=== PATIENT | female | born 1965 | race Caucasian/White ===

== ENCOUNTER 2017-02-09 12:53 | Emergency (ER) | payer OTHER ==
[2017-02-09 12:56] VITALS: BP 112/64
[2017-02-09] MEDS ORDERED: Sodium Chloride 0.9% 1,000 ML IV ONE (13:21)
[2017-02-09] MEDS ORDERED: Sodium Chloride 0.9% 10 ML Syringe FLUSH PRN (13:21)
[2017-02-09] MEDS ORDERED: Ondansetron 4 MG/2 ML SDV IVPUSH ONE (13:21)
--- NOTE | 2017-02-09 13:30 | EDM.PDOC ---
ED HPI GENERAL MEDICAL PROBLEM - General Chief Complaint: General Stated Complaint: bilateral hypogastric area pain and fever Time Seen by Provider: 02/09/17 13:09 Source of Information: Reports: Patient History Limitations: Reports: No limitations - History of Present Illness INITIAL COMMENTS - FREE TEXT/NARRATIVE: Patient comes to ER complaining of feeling feverish since Friday of last week (four days ago). Was seen at clinic on Friday and given Septra for suspected UTI. Had small amount of WBC and leukocyte esterase per her labs (she has copy of results). Complains that frequency and burning have not improved. Now has intermittent crampy pain in suprapubic area as well as bilateral low back. Some nausea. No emesis. No bowel changes. Denies HEENT/Resp/CV complaints during ROS. [place] tinged urine at times noted on toilet paper after voiding. No significant history of UTIs in past. Past medical history includes depression/anxiety/thyroid issues. 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 Lower Back Pain Score (Numeric/FACES): 7 hypogastic Pain Score (Numeric/FACES): 7 - Related Data Allergies Allergy/AdvReac Type Severity Reaction Status Date / Time Penicillins Allergy Hives Verified 02/09/17 12:55 Home Meds: Home Meds Cholecalciferol (Vitamin D3) [Vitamin D3] 2,000 unit PO DAILY 02/09/17 [History] Citalopram [Celexa] 20 mg PO DAILY 02/09/17 [History] ClonazePAM [KlonoPIN] 0.5 mg PO BID 02/09/17 [History] Levothyroxine 75 mcg PO ACBREAKFAST 02/09/17 [History] Sulfamethoxazole/Trimethoprim [Bactrim Ds Tablet] 1 each PO BID 02/09/17 [ History] traZODone 50 mg PO ONETIME 02/09/17 [History] Past Medical History Psychiatric History: Reports: Anxiety, Depression Endocrine/Metabolic History: Reports: Hypothyroidism Social & Family History - Tobacco Use Smoking Status *Q: Former Smoker Years of Tobacco use: 10 Packs/Tins Daily: 0.2 Used Tobacco, but Quit: Yes Month Tobacco Last Used: 1 - Caffeine Use Caffeine Use: Reports: Coffee, Soda - Recreational Drug Use Recreational Drug Use: No ED ROS GENERAL - Review of Systems Review Of Systems: See Below Constitutional: Reports: fever, chills, malaise, fatigue, decreased appetite. Denies: weakness, night sweats, diaphoresis HEENT: Reports: No symptoms Respiratory: Reports: no symptoms Cardiovascular: Reports: No symptoms GI/Abdominal: Reports: Abdominal pain, Decreased appetite, Nausea. Denies: Black stool, Bloody stool, Constipation, Diarrhea, Distension, Hematochezia, Vomiting : Reports: dysuria, frequency, hematuria. Denies: flank pain Musculoskeletal: Reports: back pain Skin: Reports: no symptoms Neurological: Reports: no symptoms Psychiatric: Reports: No symptoms Hematologic/Lymphatic: Reports: no symptoms ED EXAM, GENERAL - Physical Exam Exam: See Below Exam Limited By: No limitations General Appearance: alert, WD/WN, no apparent distress Eye Exam: bilateral eye: EOMI, normal inspection, PERRL Ears: normal external exam Nose: normal inspection Throat/Mouth: Normal inspection, Normal voice, No airway compromise Head: atraumatic, normocephalic Neck: normal inspection, supple, non-tender, full range of motion. No: lymphadenopathy (L), lymphadenopathy (R) Respiratory/Chest: no respiratory distress, lungs clear, normal breath sounds, no accessory muscle use Cardiovascular: regular rate, rhythm, no edema, no murmur Peripheral Pulses: 2+: radial (L), radial (R) GI/Abdominal: normal bowel sounds, soft, no distention, tender (mild tenderness lower abdomen, more pronounced suprapubic area. ). No: guarding, rigid, rebound Back Exam: No: CVA tenderness (L), CVA tenderness (R) Extremities: slow capillary refill (centrally and peripherally.) Neurological: alert, oriented, normal cognition, normal gait, no motor/sensory deficits Psychiatric: normal affect, normal mood Skin Exam: Warm, Dry, Intact, Normal color Course - Vital Signs Last Recorded V/S: Last Vital Signs Temp 36.4 C 02/09/17 12:55 Pulse 80 02/09/17 12:55 Resp 18 02/09/17 12:55 BP 112/64 02/09/17 12:55 Pulse Ox 97 02/09/17 12:55 - Orders/Labs/Meds Orders: Active Orders 24 hr Category Date Time Status Abdomen Pelvis wo Cont [CT] Stat Exams 02/09/17 14:03 Taken Sodium Chloride 0.9% [Saline Flush] Med 02/09/17 13:21 Active 10 ml FLUSH ASDIRECTED PRN cefTRIAXone [Rocephin] 1 gm Med 02/09/17 15:59 Active Sodium Chloride 0.9% [Normal Saline] 100 ml IV ONETIME Saline Lock Insert [OM.PC] Stat Oth 02/09/17 13:21 Ordered Medication Orders Ceftriaxone Sodium 1 gm/ (Sodium Chloride) 100 mls @ 200 mls/hr IV ONETIME ONE Stop: 02/09/17 16:28 Sodium Chloride (Saline Flush) 10 ml FLUSH ASDIRECTED PRN PRN Reason: Keep Vein Open Labs: Laboratory Tests 02/09/17 02/09/17 02/09/17 Range/Units 13:10 13:15 13:25 WBC 4.5 (4.0-10.2) K/uL RBC 4.28 (3.77-5.09) M/uL Hgb 13.8 (11.7-15.5) g/dL Hct 39.6 (34.0-46.0) % MCV 92.5 (84.0-98.0) fL MCH 32.2 (28.2-33.3) pg MCHC 34.8 (31.7-36.0) g/dL RDW 12.6 (11.2-14.1) % Plt Count 201 (150-350) K/uL Neut % (Auto) 76.3 (45.0-80.0) % Lymph % (Auto) 13.9 (10.0-50.0) % [place] % (Auto) 9.4 (2.0-14.0) % Eos % (Auto) 0.2 (0.0-5.0) % Baso % (Auto) 0.2 (0.0-2.0) % Neut # 3.39 (1.40-7.00) K/uL Lymph # 0.62 (0.50-3.50) K/uL [place] # 0.42 (0.00-1.00) K/uL Eos # 0.01 (0.00-0.50) K/uL Baso # 0.01 (0.00-0.20) K/uL Sodium 137 (136-145) mmol/L Potassium 3.5 (3.5-5.1) mmol/L Chloride 103 (98-107) mmol/L Carbon Dioxide 23.4 (21.0-32.0) mmol/L BUN 7 (7-18) mg/dL Creatinine 0.76 (0.51-1.17) mg/dL Est Cr Clr Drug Dosing 73.26 mL/min Estimated GFR (MDRD) > 60 mL/min Glucose 98 (74-106) mg/dL Calcium 8.4 L (8.5-10.1) mg/dL Total Bilirubin 0.3 (0.2-1.0) mg/dL AST 13 L (15-37) U/L ALT 17 (12-78) U/L Alkaline Phosphatase 52 (46-116) IU/L Total Protein 7.1 (6.4-8.2) g/dL Albumin 4.0 (3.4-5.0) g/dL Specimen Type Urinblad Urine Color Yellow Urine Appearance Clear Urine pH 6.0 (5.0-9.0) Ur Specific [place] <= 1.005 (1.005-1.030) Urine Protein Negative (NEGATIVE) mg/dL Urine Glucose (UA) Negative (NEGATIVE) mg/dL Urine Ketones Negative (NEGATIVE) mg/dL Urine Occult Blood Trace-intact H (NEGATIVE) Urine Nitrite Negative (NEGATIVE) Urine Bilirubin Negative (NEGATIVE) Urine Urobilinogen 0.2 (0.2-1.0) E.U./dL Ur Leukocyte Esterase Negative (NEGATIVE) Urine RBC 5-10 H /HPF Urine WBC 0-5 /HPF Ur Epithelial Cells Few /LPF Urine Bacteria Rare (NONE TO FEW) /HPF Meds: Medications Generic Name Dose Route Start Last Admin Trade Name Freq PRN Reason Stop Dose Admin Ceftriaxone Sodium 1 gm/ 100 mls @ 200 mls/hr 02/09/17 15:59 Sodium Chloride IV 02/09/17 16:28 ONETIME ONE Sodium Chloride 10 ml 02/09/17 13:21 Saline Flush FLUSH ASDIRECTED PRN Keep Vein Open Discontinued Medications Generic Name Dose Route Start Last Admin Trade Name Freq PRN Reason Stop Dose Admin Sodium Chloride 1,000 mls @ 999 mls/hr 02/09/17 13:21 02/09/17 13:34 Normal Saline IV 02/09/17 14:21 999 mls/hr .BOLUS ONE Administration Ketorolac Tromethamine 30 mg 02/09/17 14:03 02/09/17 14:12 Toradol IVPUSH 02/09/17 14:04 30 mg ONETIME ONE Administration Ondansetron HCl 4 mg 02/09/17 13:21 02/09/17 13:34 Zofran IVPUSH 02/09/17 13:22 4 mg ONETIME ONE Administration - Radiology Interpretation Free Text/Narrative:: CT of abdomen read as overall normal. Some fluid noted in pelvis. Could also be normal per radiologist. - Re-Assessments/Exams Free Text/Narrative Re-Assessment/Exam: 02/09/17 16:02 Patient given fluids, Toradol, Zofran. CBC/Chem/UA overall unremarkable. No sign of UTI. Patient did have small amount of blood in UA. CT of abdomen ordered. Read by radiology as being overall unremarkable. A small amount of fluid in the pelvis was noted but radiology felt that this could be normal variant. Pelvic exam then performed. No cervical motion tenderness noted. No uterine tenderness or masses noted. Patient had wondered if an STD of any sort could cause symptoms. No new sexual partners however. GC and Chlamydia culture performed. Uncertain as to what is causing patient's small amount of hematuria as well as the frequency issues. Review of her labwork from last week shows only a very small amount of WBCs in urine. Today's sample had no elevation of WBC and no LE. There persistent intermittent low abdomen/low back pain has no obvious cause at this point in time. Cannot rule out GI/viral cause, however that would not explain the urinary complaints. Lab/CT results discussed with patient. Plan at this time is to have patient go home. OK to discontinue Septra. She declined Rocephin. She will follow up with her primary provider this week if symptoms persist. She knows that she can return to the ER if new issues/worsening problems develop. Departure - Departure Time of Disposition: 16:12 Disposition: Home, Self-Care 01 Condition: good Clinical Impression: Hematuria, Bilateral lower abdominal discomfort, Urinary frequency Low back pain Qualifiers: Chronicity: acute Back pain laterality: bilateral Sciatica presence: without sciatica Qualified Code(s): M54.5 - Low back pain Instructions: Urinary Frequency, Adult, Hematuria, Adult, Pelvic Pain, Female, [id number] Forms: ED Department Discharge Additional Instructions: OK to discontinue antibiotic. Urine is clear of any sign of infection. Watch for any new symptoms, or changing symptoms. Follow up with your primary clinic in 3-4 days if things do not improve. Follow up earlier if you have sudden worsening problems. - My Orders Last 24 Hours: My Active Orders 02/09/17 13:21 Sodium Chloride 0.9% [Saline Flush] 10 ml FLUSH ASDIRECTED PRN Saline Lock Insert [OM.PC] Stat 02/09/17 14:03 Abdomen Pelvis wo Cont [CT] Stat 02/09/17 15:59 cefTRIAXone [Rocephin] 1 gm Sodium Chloride 0.9% [Normal Saline] 100 ml IV ONETIME - Assessment/Plan Last 24 Hours: My Active Orders 02/09/17 13:21 Sodium Chloride 0.9% [Saline Flush] 10 ml FLUSH ASDIRECTED PRN Saline Lock Insert [OM.PC] Stat 02/09/17 14:03 Abdomen Pelvis wo Cont [CT] Stat 02/09/17 15:59 cefTRIAXone [Rocephin] 1 gm Sodium Chloride 0.9% [Normal Saline] 100 ml IV ONETIME
[2017-02-09 13:58] LABS: CHLORIDE,CL 103 mmol/L (98-107); SODIUM,NA 137 mmol/L (136-145)
[2017-02-09] MEDS ORDERED: Ketorolac 30 MG/ML SDV IVPUSH ONE (14:03)
[2017-02-09] MEDS ORDERED: cefTRIAXone 1 GM in Sodium Chloride 0.9% 100 ML IV ONE (15:59)
== END 2017-02-09 16:33 | disposition home or self-care (01) ==
LOC: LL.ED 12:53
DX: M54.5 Low back pain (principal); R31.9 Hematuria, unspecified; R35.0 Frequency of micturition; R10.31 Right lower quadrant pain; R10.32 Left lower quadrant pain; F32.9 Major depressive disorder, single episode, unspecified; F41.9 Anxiety disorder, unspecified; E03.9 Hypothyroidism, unspecified; Z79.899 Other long term (current) drug therapy; Z87.891 Personal history of nicotine dependence; Z88.0 Allergy status to penicillin
CPT/HCPCS: 36415; 74176; 80053; 81001; 85025; 96361; 96374; 96375; 99284; J1885; J2405; J7030; 87491; 87591

== ENCOUNTER 2017-02-17 20:14 | Emergency (ER) | payer OTHER ==
[2017-02-17 20:17] VITALS: BP 107/69
[2017-02-17] MEDS ORDERED: Sodium Chloride 0.9% 1,000 ML IV ONE ×2 (20:31→21:31)
[2017-02-17] MEDS ORDERED: Sodium Chloride 0.9% 10 ML Syringe FLUSH PRN (20:32)
[2017-02-17 21:12] LABS: CHLORIDE,CL 102 mmol/L (98-107); SODIUM,NA 138 mmol/L (136-145)
[2017-02-17] MEDS ORDERED: Acetaminophen 325 MG Tab PO ONE (21:33)
[2017-02-17] MEDS ORDERED: Levofloxacin/Dextrose 5%-Water 500 MG in Premix Bag 1 BAG IV ONE (21:35)
--- NOTE | 2017-02-17 22:11 | EDM.PDOC ---
ED HPI GENERAL MEDICAL PROBLEM - General Chief Complaint: Fever Stated Complaint: fever, cough Time Seen by Provider: 02/17/17 20:25 Source of Information: Reports: Patient History Limitations: Reports: No limitations - History of Present Illness INITIAL COMMENTS - FREE TEXT/NARRATIVE: Fevers for 1.5 weeks. Diagnosed with flu 4 days ago. Weak and dehydrated today Onset Date: 02/05/17 Location: Reports: generalized Quality: Reports: Other (no specific pain) Improves with: Reports: None Worsens with: Reports: None Associated Symptoms: Reports: cough, fever/chills, malaise, weakness. 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 Tamiflu 5 days ( just finished)) Generalized Pain Score (Numeric/FACES): 9 - Related Data Allergies Allergy/AdvReac Type Severity Reaction Status Date / Time Penicillins Allergy Hives Verified 02/09/17 12:55 Home Meds: Home Meds Cholecalciferol (Vitamin D3) [Vitamin D3] 2,000 unit PO DAILY 02/09/17 [History] Citalopram [Celexa] 20 mg PO DAILY 02/09/17 [History] ClonazePAM [KlonoPIN] 0.5 mg PO BID 02/09/17 [History] Levothyroxine 75 mcg PO ACBREAKFAST 02/09/17 [History] Sulfamethoxazole/Trimethoprim [Bactrim Ds Tablet] 1 each PO BID 02/09/17 [ History] traZODone 50 mg PO ONETIME 02/09/17 [History] Codeine/Promethazine [Phenergan with Codeine] 5 ml PO Q4HR 02/17/17 [History] Ondansetron HCl [Zofran] 4 mg PO Q6HR 02/17/17 [History] Past Medical History Psychiatric History: Reports: Anxiety, Depression Endocrine/Metabolic History: Reports: Hypothyroidism Social & Family History - Tobacco Use Smoking Status *Q: Former Smoker Years of Tobacco use: 10 Packs/Tins Daily: 0.2 Used Tobacco, but Quit: Yes Month Tobacco Last Used: 1 - Caffeine Use Caffeine Use: Reports: Coffee, Soda - Recreational Drug Use Recreational Drug Use: No ED ROS GENERAL - Review of Systems Review Of Systems: See Below Constitutional: Reports: fever, chills, malaise, weakness, fatigue HEENT: Reports: No symptoms, Sinus problem (mild pressure). Denies: Rhinitis, Throat pain, Throat swelling Respiratory: Reports: Cough. Denies: Shortness of Breath, Wheezing, Pleuritic Chest Pain, Sputum Cardiovascular: Reports: No symptoms Endocrine: Reports: no symptoms GI/Abdominal: Reports: No symptoms : Reports: no symptoms Musculoskeletal: Reports: no symptoms Skin: Reports: no symptoms Neurological: Reports: No Symptoms Psychiatric: Reports: No symptoms Hematologic/Lymphatic: Reports: no symptoms Immunologic: Reports: no symptoms ED EXAM, GENERAL - Physical Exam Exam: See Below Exam Limited By: No limitations General Appearance: alert, WD/WN, no apparent distress Ears: normal external exam, normal canal, hearing grossly normal, normal TMs Nose: normal inspection, normal mucosa, no blood Throat/Mouth: Normal inspection, Normal oropharynx, Normal voice, No airway compromise Head: atraumatic, normocephalic Neck: normal inspection, supple, non-tender, full range of motion. No: lymphadenopathy (L), lymphadenopathy (R) Respiratory/Chest: no respiratory distress, lungs clear, normal breath sounds, no accessory muscle use Cardiovascular: normal peripheral pulses, regular rate, rhythm, no edema, no murmur GI/Abdominal: normal bowel sounds, soft, non tender, no organomegaly Back Exam: normal inspection, full range of motion. No: CVA tenderness (L), CVA tenderness (R) Extremities: normal inspection, normal range of motion, non-tender, no pedal edema, slow capillary refill (4-5 seconds) Neurological: alert, oriented, CN II-XII intact, normal cognition, normal gait ( a bit unsteady), no motor/sensory deficits Psychiatric: normal affect, normal mood Skin Exam: Warm, Dry, Intact, Normal color, Pallor Lymphatic: no adenopathy Course - Vital Signs Last Recorded V/S: Last Vital Signs Temp 37.0 C 02/17/17 20:16 Pulse 87 02/17/17 20:16 Resp 18 02/17/17 20:16 BP 107/69 02/17/17 20:16 Pulse Ox 98 02/17/17 20:16 - Orders/Labs/Meds Orders: Active Orders 24 hr Category Date Time Status Chest 2V [CR] Stat Exams 02/17/17 20:32 Taken CULTURE BLOOD [BC] Stat Lab 02/17/17 20:50 Received CULTURE BLOOD [BC] Stat Lab 02/17/17 21:12 Received Sodium Chloride 0.9% [Saline Flush] Med 02/17/17 20:32 Active 10 ml FLUSH ASDIRECTED PRN Blood Culture x2 Reflex Set [OM.PC] Stat Oth 02/17/17 20:55 Ordered Saline Lock Insert [OM.PC] Routine Oth 02/17/17 20:32 Ordered Medication Orders Sodium Chloride (Saline Flush) 10 ml FLUSH ASDIRECTED PRN PRN Reason: Keep Vein Open Labs: Laboratory Tests 02/17/17 02/17/17 02/17/17 Range/Units 20:34 20:50 20:50 WBC 4.1 (4.0-10.2) K/uL RBC 4.44 (3.77-5.09) M/uL Hgb 14.0 (11.7-15.5) g/dL Hct 39.7 (34.0-46.0) % MCV 89.4 D (84.0-98.0) fL MCH 31.5 (28.2-33.3) pg MCHC 35.3 (31.7-36.0) g/dL RDW 12.1 (11.2-14.1) % Plt Count 252 (150-350) K/uL Neut % (Auto) 64.1 (45.0-80.0) % Lymph % (Auto) 25.9 (10.0-50.0) % [place] % (Auto) 9.8 (2.0-14.0) % Eos % (Auto) 0.0 (0.0-5.0) % Baso % (Auto) 0.2 (0.0-2.0) % Neut # 2.63 (1.40-7.00) K/uL Lymph # 1.06 (0.50-3.50) K/uL [place] # 0.40 (0.00-1.00) K/uL Eos # 0.00 (0.00-0.50) K/uL Baso # 0.01 (0.00-0.20) K/uL Sodium 138 (136-145) mmol/L Potassium 3.6 (3.5-5.1) mmol/L Chloride 102 (98-107) mmol/L Carbon Dioxide 26.0 (21.0-32.0) mmol/L BUN 5 L (7-18) mg/dL Creatinine 0.60 (0.51-1.17) mg/dL Est Cr Clr Drug Dosing TNP Estimated GFR (MDRD) > 60 mL/min Glucose 106 (74-106) mg/dL Lactic Acid (0.4-2.0) mmol/L Calcium 8.7 (8.5-10.1) mg/dL Total Bilirubin 0.6 (0.2-1.0) mg/dL AST 41 H (15-37) U/L ALT 64 (12-78) U/L Alkaline Phosphatase 57 (46-116) IU/L Total Protein 7.0 (6.4-8.2) g/dL Albumin 3.8 (3.4-5.0) g/dL HCG, Qual (NEGATIVE) Specimen Type Urinvoid Urine Color Yellow Urine Appearance Clear Urine pH 6.0 (5.0-9.0) Ur Specific [place] 1.020 (1.005-1.030) Urine Protein Trace H (NEGATIVE) mg/dL Urine Glucose (UA) 100 H (NEGATIVE) mg/dL Urine Ketones 80 H (NEGATIVE) mg/dL Urine Occult Blood Negative (NEGATIVE) Urine Nitrite Negative (NEGATIVE) Urine Bilirubin Small H (NEGATIVE) Urine Urobilinogen 1.0 (0.2-1.0) E.U./dL Ur Leukocyte Esterase Negative (NEGATIVE) Urine RBC Not Reportable Urine WBC Not Reportable Urinalysis Comment 02/17/17 02/17/17 Range/Units 20:50 20:50 WBC (4.0-10.2) K/uL RBC (3.77-5.09) M/uL Hgb (11.7-15.5) g/dL Hct (34.0-46.0) % MCV (84.0-98.0) fL MCH (28.2-33.3) pg MCHC (31.7-36.0) g/dL RDW (11.2-14.1) % Plt Count (150-350) K/uL Neut % (Auto) (45.0-80.0) % Lymph % (Auto) (10.0-50.0) % [place] % (Auto) (2.0-14.0) % Eos % (Auto) (0.0-5.0) % Baso % (Auto) (0.0-2.0) % Neut # (1.40-7.00) K/uL Lymph # (0.50-3.50) K/uL [place] # (0.00-1.00) K/uL Eos # (0.00-0.50) K/uL Baso # (0.00-0.20) K/uL Sodium (136-145) mmol/L Potassium (3.5-5.1) mmol/L Chloride (98-107) mmol/L Carbon Dioxide (21.0-32.0) mmol/L BUN (7-18) mg/dL Creatinine (0.51-1.17) mg/dL Est Cr Clr Drug Dosing Estimated GFR (MDRD) mL/min Glucose (74-106) mg/dL Lactic Acid 0.8 (0.4-2.0) mmol/L Calcium (8.5-10.1) mg/dL Total Bilirubin (0.2-1.0) mg/dL AST (15-37) U/L ALT (12-78) U/L Alkaline Phosphatase (46-116) IU/L Total Protein (6.4-8.2) g/dL Albumin (3.4-5.0) g/dL HCG, Qual Negative (NEGATIVE) Specimen Type Urine Color Urine Appearance Urine pH (5.0-9.0) Ur Specific [place] (1.005-1.030) Urine Protein (NEGATIVE) mg/dL Urine Glucose (UA) (NEGATIVE) mg/dL Urine Ketones (NEGATIVE) mg/dL Urine Occult Blood (NEGATIVE) Urine Nitrite (NEGATIVE) Urine Bilirubin (NEGATIVE) Urine Urobilinogen (0.2-1.0) E.U./dL Ur Leukocyte Esterase (NEGATIVE) Urine RBC Urine WBC Urinalysis Comment Meds: Medications Generic Name Dose Route Start Last Admin Trade Name Freq PRN Reason Stop Dose Admin Sodium Chloride 10 ml 02/17/17 20:32 Saline Flush FLUSH ASDIRECTED PRN Keep Vein Open Discontinued Medications Generic Name Dose Route Start Last Admin Trade Name Freq PRN Reason Stop Dose Admin Acetaminophen 650 mg 02/17/17 21:33 02/17/17 21:52 Tylenol PO 02/17/17 21:34 650 mg NOW ONE Administration Sodium Chloride 1,000 mls @ 999 mls/hr 02/17/17 20:31 02/17/17 21:12 Normal Saline IV 02/17/17 21:31 999 mls/hr .BOLUS ONE Administration Sodium Chloride 1,000 mls @ 999 mls/hr 02/17/17 21:31 Normal Saline IV 02/17/17 22:31 .BOLUS ONE Levofloxacin/Dextrose 500 mg/ 100 mls @ 100 mls/hr 02/17/17 21:35 02/17/17 21 :53 Premix IV 02/17/17 22:34 100 mls/hr ONETIME ONE Administration - Re-Assessments/Exams Free Text/Narrative Re-Assessment/Exam: 02/17/17 22:42 Improved with fluids Departure - Departure Time of Disposition: 23:30 Disposition: Home, Self-Care 01 Condition: good Clinical Impression: Dehydration Fever Qualifiers: Fever type: due to other condition Qualified Code(s): R50.81 - Fever presenting with conditions classified elsewhere Referrals: PCP,None [Primary Care Provider] - Forms: ED Department Discharge - Problem List Review Problem List Initiated/Reviewed/Updated: No - My Orders Last 24 Hours: My Active Orders 02/17/17 20:32 Chest 2V [CR] Stat Sodium Chloride 0.9% [Saline Flush] 10 ml FLUSH ASDIRECTED PRN Saline Lock Insert [OM.PC] Routine 02/17/17 20:50 CULTURE BLOOD [BC] Stat 02/17/17 20:55 Blood Culture x2 Reflex Set [OM.PC] Stat 02/17/17 21:12 CULTURE BLOOD [BC] Stat - Assessment/Plan Last 24 Hours: My Active Orders 02/17/17 20:32 Chest 2V [CR] Stat Sodium Chloride 0.9% [Saline Flush] 10 ml FLUSH ASDIRECTED PRN Saline Lock Insert [OM.PC] Routine 02/17/17 20:50 CULTURE BLOOD [BC] Stat 02/17/17 20:55 Blood Culture x2 Reflex Set [OM.PC] Stat 02/17/17 21:12 CULTURE BLOOD [BC] Stat Assessment:: 1. Dehydration due to extended illness 2. Fever 5 days after diagnosis of influenza, can't r/o early bacterial infection Plan: 1. Push fluids 2. Cipro for the next 7 days 3. Tylenol and advil 4. blood cultures pending 5. F/U PCP in 3-4 days for recheck
[2017-02-17] MEDS ORDERED: Ondansetron 4 MG/2 ML SDV IVPUSH ONE (22:54)
== END 2017-02-18 00:45 | disposition home or self-care (01) ==
LOC: LL.ED 20:14
DX: E86.0 Dehydration (principal); R50.81 Fever presenting with conditions classified elsewhere; Z88.0 Allergy status to penicillin; Z79.899 Other long term (current) drug therapy; E03.9 Hypothyroidism, unspecified; F32.9 Major depressive disorder, single episode, unspecified; F41.9 Anxiety disorder, unspecified; Z87.891 Personal history of nicotine dependence
CPT/HCPCS: 36415; 71020; 80053; 81001; 83605; 84703; 85025; 87040; A9270; J1956; J2405; J7030; 96361; 96365; 96375; 99284